=== PATIENT | female | born 1940 | race Two or more races ===

== ENCOUNTER 2018-10-26 22:30 | Inpatient (IN) | payer OTHER, MEDICARE ==
[~2018-10-26] VITALS: Ht 157.5 cm; Wt 59.9 kg
[2018-10-27 01:09] VITALS: BP 130/70
[2018-10-27] MEDS ORDERED: MAG HYDROX/AL HYDROX/SIMETH 30 ML UDC PO PRN (01:30)
[2018-10-27] MEDS ORDERED: HYDROCODONE/APAP 10/325MG 1 EA TABLET PO PRN (01:30)
[2018-10-27] MEDS ORDERED: ONDANSETRON HCL/PF 4 MG/2 ML VIAL IVP PRN (01:30)
[2018-10-27] MEDS ORDERED: HYDROCODONE/APAP 5/325MG 1 EACH TABLET PO PRN (01:30)
[2018-10-27] MEDS ORDERED: TEMAZEPAM 15 MG CAPSULE PO PRN (01:30)
[2018-10-27] MEDS ORDERED: ACETAMINOPHEN 325 MG TABLET PO PRN (01:30)
[2018-10-27] MEDS ORDERED: MAGNESIUM HYDROXIDE 30 ML UDC PO PRN (01:30)
[2018-10-27] MEDS ORDERED: ATOR20TA PO (01:35)
[2018-10-27] MEDS ORDERED: METO50TA16 PO (01:35)
[2018-10-27] MEDS ORDERED: ALEN70TA6 PO (01:35)
[2018-10-27] MEDS ORDERED: BENA40TA8 PO (01:35)
[2018-10-27] MEDS ORDERED: CALC-883 PO (01:35)
--- NOTE | 2018-10-27 02:30 | NUR ---
MS ADMITTING NOTES RECEIVE PT FROM HIRAL SANCHEZ [facility] VIA NOA Albright EMT AT 0109 A/O X 3 WITH PERIOD OF FORGETFULNESS ADMIT TO MS UNIT ON 2LPM VIA NC 02 SAT AT 98%. DENIES PAIN. NO NAUSEA AND VOMITING. DAUGHTER AT BEDSIDE. HEAD TO ASSESSMENT IS DONE, KEPT CLEAN AND DRY, COMFORTABLE. NEEDS ATTENDED AND ANTICIPATED. SAFETY MEASURES AT ALL TIMES. WILL CONTINUE TO MONITOR.
--- NOTE | 2018-10-27 06:12 | NUR ---
MS RN PT SLEPT WELL THROUGHOUT THE NIGHT. DAUGHTER AT BEDSIDE. NOT IN RESPIRATORY DISTRESS. NO SIGNIFICANT CHANGES, STABLE. KEPT CLEAN AND DRY AND COMFORTABLE. NEEDS ATTENDED AND ANTICIPATED. NURSING CARE RENDERED, SAFETY MEASURES AT ALL TIMES. ENDORSE TO THE NEXT SHIFT.
--- NOTE | 2018-10-27 07:35 | NUR ---
RN NOTE: RECEIVED PATIENT IN BED, AWAKE, ALERT AND VERBALLY RESPONSIVE. DAUGHTER AT THE BEDSIDE. RESPIRATION EVEN AND UNLABORED WITH O2 3L/MIN VIA NC SATURATING 99%. PATIENT WAS MACEDONIAN SPEAKING MOSTLY. RESPIRATION EVEN AND UNLABORED SATURATING 99% IN ROOM AIR. DENIED ANY PAIN. BREAKFAST TRAY WAS OFFERED TO THE PATIENT. (L) HAND IV SITE WAS INTACT AND PATENT. BED ALARMED AND LOCKED AT ALL TIMES. CALL LIGHT WITHIN REACH. NEEDS ANTICIPATED.
[2018-10-27 07:47] LABS: THYROID STIMULATING HORMONE 4.688 uIU/mL (0.358-3.74)
[2018-10-27 08:00] VITALS: BP 120/67
[2018-10-27] MEDS: CEFTRIAXONE 1 G in IV D5W 50 ML IV SCH (08:27)
[2018-10-27] MEDS: CALCIUM CARB 600MG /VIT D 1 EACH TABLET PO SCH (08:42)
[2018-10-27] MEDS: BENAZEPRIL HCL 20 MG TABLET PO SCH (09:00)
[2018-10-27] MEDS: METOPROLOL TARTRATE 50 MG TABLET PO SCH (12:21)
[2018-10-27 12:29] LABS: CALCIUM, SERUM 9.4 mg/dL (8.5-10.1); CARBON DIOXIDE 27 mmol/L (21-32); CHLORIDE 100 mmol/L (98-107); GLUCOSE 119 mg/dL (74-106); SODIUM SERUM 136 mmol/L (136-145); UREA NITROGEN, BLOOD 18 mg/dL (7-18)
[2018-10-27 13:29] LABS: MAGNESIUM 2.2 mg/dL (1.8-2.4); PHOSPHORUS 3.9 mg/dL (2.5-4.9)
[2018-10-27 16:00] VITALS: BP 126/70
--- NOTE | 2018-10-27 19:25 | NUR ---
RN OPEN NOTES RECEIVED PATIENT AWAKE IN BED WITH FAMILY AT BEDSIDE. A/OX4. NO SIGNS OF DISTRESS OR DISCOMFORT. BREATHING EVEN AND UNLABORED. IV ACCESS IN L HAND, PATENT AND INTACT, NO SIGNS OF REDNESS OR INFILTRATION. BED IN LOW LOCKED POSITION WITH SIDE RAILS X2. CALL LIGHT WITHIN REACH. WILL CONTINUE TO MONITOR. Addendum: 10/27/18 at 2007 by PAMELA RAIN RN PT ON 2LPM O2 VIA NC.
--- NOTE | 2018-10-27 19:26 | NUR ---
RN NOTE: BEDSIDE REPORT WAS GIVEN TO PM SHIFT NURSE FOR CONTINUITY OF CARE. PATIENT REMAINED ON STABLE CONDITION. NO EPISODES OF SHORTNESS OF BREATH. AND DENIED ANY PAIN.
[2018-10-27 19:57] VITALS: BP 126/71
[2018-10-27 20:00] VITALS: BP 126/71
[2018-10-27] MEDS: ATORVASTATIN 10 MG TABLET PO SCH (21:31)
[2018-10-28 04:00] VITALS: BP 106/66
--- NOTE | 2018-10-28 06:46 | NUR ---
RN CLOSING NOTES PATIENT RESTING IN BED, EASILY AROUSABLE. A/OX4. NO SIGNS OF DISTRESS OR DISCOMFORT. BREATHING EVEN AND UNLABORED. ON 2LPM O2 VIA NC. IV ACCESS IN L HAND, PATENT AND INTACT, NO SIGNS OF REDNESS OR INFILTRATION. ALL NEEDS MET. NO SIGNIFICANT CHANGES THROUGH THE NIGHT. BED IN LOW LOCKED POSITION WITH SIDE RAILS X2. CALL LIGHT WITHIN REACH. WILL ENDORSE TO AM SHIFT FOR REUBEN.
--- NOTE | 2018-10-28 07:20 | NUR ---
MS RN OPENING NOTES Report received at bedside. patient received in bed, sleeping comfortably, easily aroused, On continuous oxygen therapy @2LPM via nasal cannula with no SOB/labored breathing noted. Not in any type of distress. No facial grimacing or moaning noted. Safety measures in place. Will continue to monitor and assess patient.
[2018-10-28 07:37] LABS: CALCIUM, SERUM 9.2 mg/dL (8.5-10.1); CARBON DIOXIDE 26 mmol/L (21-32); CHLORIDE 102 mmol/L (98-107); CREATININE 0.8 mg/dL (0.6-1.3); GLUCOSE 105 mg/dL (74-106); MAGNESIUM 2.2 mg/dL (1.8-2.4); PHOSPHORUS 3.4 mg/dL (2.5-4.9); POTASSIUM 4.2 mmol/L (3.5-5.1); SODIUM SERUM 137 mmol/L (136-145); UREA NITROGEN, BLOOD 18 mg/dL (7-18)
[2018-10-28 08:00] VITALS: BP 114/72
[2018-10-28 08:05] LABS: BASOPHILS % (AUTO) 0.3 % (0.0-2.0); EOSINOPHILS % (AUTO) 1.5 % (0.0-6.0); HEMATOCRIT 40 % (33-45); HEMOGLOBIN 13.5 g/dL (11.5-14.8); LYMPHOCYTES # (AUTO) 1.6 /CMM (0.8-4.8); LYMPHOCYTES % (AUTO) 24.1 % (20.0-44.0); MEAN CORPUSCULAR HGB CONC 34 g/dl (31.0-36.0); MEAN CORPUSCULAR VOLUME 83 fL (82-100); MONOCYTES # (AUTO) 0.6 /CMM (0.1-1.30); MONOCYTES % (AUTO) 9.5 % (2.0-12.0); NEUTROPHILS # (AUTO) 4.3 /CMM (1.8-8.9); NEUTROPHILS % (AUTO) 64.6 % (43.0-81.0); PLATELET COUNT (AUTO) 218 /CMM (150-450); RED BLOOD CELL COUNT(AUTO) 4.82 MIL/uL (4.0-5.2); WHITE BLOOD COUNT (AUTO) 6.7 K/uL (4.3-11.0)
[2018-10-28] MEDS: BENAZEPRIL HCL 20 MG TABLET PO SCH (08:22)
[2018-10-28] MEDS: METOPROLOL TARTRATE 50 MG TABLET PO SCH (08:22)
[2018-10-28] MEDS: CALCIUM CARB 600MG /VIT D 1 EACH TABLET PO SCH (08:22)
[2018-10-28] MEDS: CEFTRIAXONE 1 G in IV D5W 50 ML IV SCH (09:13)
--- NOTE | 2018-10-28 09:17 | NUR ---
WOUND CARE CONSULT: PT PRESENTS WITH SOME SACRAL PIGMENT IRREGULARITIES AND INTACT SKIN. PT IS CONTINENT AND AMBULATORY. WILL SEE PRN. CURRENT BRYAN SCORE IS 19.
--- NOTE | 2018-10-28 13:55 | NUR ---
MS RN NOTES CC at bedside. Per CC, collect urine sample, continue hospitalization and continue IV antibiotic treatment.
[2018-10-28 16:00] VITALS: BP 98/54
--- NOTE | 2018-10-28 18:45 | NUR ---
MS RN CLOSING NOTES Patient remained in bed, intermittently sleeping. Alert and oriented x3, verbally responsive in Occitan only. Family at bedside. Denies any pain/discomfort. Remains on continuous oxygen therapy @2LPM via nasal cannula with no labored breathing noted. Not in any type of distress. Low grade fever - provider aware with orders of urine culture, continue hospitalization with IV antibiotic treatment. All anticipated needs provided and met. Kept patient clean, dry and comfortable. Safety measures in place. Bed in lowest position with bed alarm on and call light within reach. Will continue to monitor and assess patient and endorse to oncoming shift nurse.
[2018-10-28 19:11] LABS: APPEARANCE,URINE SL CLOUDY (CLEAR); BILIRUBIN,URINE 1+ (NEGATIVE); BLOOD, URINE TRACE Ery/uL (NEGATIVE); COLOR,URINE YELLOW (YELLOW); KETONES,URINE TRACE (NEGATIVE); LEUKOCYTE ESTERASE ,URINE 1+ (NEGATIVE); NITRITE, URINE NEGATIVE (NEGATIVE); PH,URINE 5.5 (5.0-8.0); PROTEIN,URINE TRACE mg/dl (NEGATIVE); UGLUCOSE NEGATIVE (NEGATIVE); UROBILINOGEN,URINE 0.2 EU/dL (0.2)
--- NOTE | 2018-10-28 19:45 | NUR ---
MS RN NOTES RECEIVED PATIENT AWAKE, NO SIGNS OF ACUTE RESPIRATORY DISTRESS, ON O2 AT 2LPM VIA NC, BREATHING EVEN AND NON LABORED SATING 100%, IV ACCESS ON HER LEFT HAND G#22 INTACT AND PATENT, ALL SAFETY MEASURES IN PLACE ASPIRATION PRECAUTION EMPHASIZE, FAMILY MEMBERS AT BEDSIDE AT THIS TIME. ALL NEEDS ATTENDED, WILL CONTINUE TO MONITOR ACCORDINGLY.
[2018-10-28 20:00] VITALS: BP 128/68
[2018-10-28 20:06] LABS: RBC,URINE 0-2 /HPF (0-2); SQUAMOUS EPITHELIAL CELL,UR Few /HPF (None Seen)
[2018-10-28 20:07] LABS: BACTERIA,URINE Rare /HPF (None Seen)
[2018-10-28] MEDS: ATORVASTATIN 10 MG TABLET PO SCH (22:00)
[2018-10-29] VITALS: BP 128/68
[2018-10-29 04:00] VITALS: BP 129/74
--- NOTE | 2018-10-29 06:50 | NUR ---
RN NOTES ALL NEEDS ATTENDED AND MET, ABLE TO REST AND SLEEP WITH LONG INTERVALS, USES BEDSIDE COMMODE, SAFETY MEASURES IN PLACE, CALL LIGHT WITHIN EASY REACH, WILL ENDORSE TO AM NURSE FOR CONTINUITY OF CARE.
[2018-10-29 07:24] LABS: CALCIUM, SERUM 9.7 mg/dL (8.5-10.1); CARBON DIOXIDE 26 mmol/L (21-32); CHLORIDE 103 mmol/L (98-107); GLUCOSE 113 mg/dL (74-106); MAGNESIUM 2.2 mg/dL (1.8-2.4); PHOSPHORUS 4.1 mg/dL (2.5-4.9); SODIUM SERUM 138 mmol/L (136-145); UREA NITROGEN, BLOOD 26 mg/dL (7-18)
--- NOTE | 2018-10-29 07:30 | NUR ---
MS RN OPENING NOTES RECEIVED PT IN BED. ASLEEP, EASILY AROUSED, A/O X3. PT ON SUPPLEMENTARY OXYGEN AT 2L VIA NC, WITH NO ACUTE RESPIRATORY DISTRESS. PT DENIES ANY PAIN OR DISCOMFORT AT THIS TIME. PT DENIES ANY QUESTIONS OR ANY CONCERNS AT THIS MOMENT. PIV TO LEFT HAND G22 SL, FLUSHED WITH NS, INTACT AND OPERATIONAL. PT KEPT COMFORTABLE. PT'S BED IN LOWEST, LOCKED POSITION WITH SR X2. CALL LIGHT KEPT WITHIN REACH. WILL CONTINUE PLAN OF CARE.
[2018-10-29 07:49] LABS: BASOPHILS % (AUTO) 0.3 % (0.0-2.0); EOSINOPHILS % (AUTO) 1.4 % (0.0-6.0); HEMATOCRIT 41 % (33-45); HEMOGLOBIN 13.7 g/dL (11.5-14.8); LYMPHOCYTES % (AUTO) 24.6 % (20.0-44.0); MEAN CORPUSCULAR HGB CONC 34 g/dl (31.0-36.0); MEAN CORPUSCULAR VOLUME 83 fL (82-100); MONOCYTES # (AUTO) 0.7 /CMM (0.1-1.30); MONOCYTES % (AUTO) 8.7 % (2.0-12.0); NEUTROPHILS # (AUTO) 5.2 /CMM (1.8-8.9); PLATELET COUNT (AUTO) 216 /CMM (150-450); RED BLOOD CELL COUNT(AUTO) 4.91 MIL/uL (4.0-5.2); WHITE BLOOD COUNT (AUTO) 8.1 K/uL (4.3-11.0)
[2018-10-29 08:00] VITALS: BP 134/70
[2018-10-29] MEDS: CALCIUM CARB 600MG /VIT D 1 EACH TABLET PO SCH (08:32)
[2018-10-29] MEDS: CEFTRIAXONE 1 G in IV D5W 50 ML IV SCH (08:32)
[2018-10-29] MEDS: METOPROLOL TARTRATE 50 MG TABLET PO SCH (08:33)
[2018-10-29] MEDS: BENAZEPRIL HCL 20 MG TABLET PO SCH (08:33)
[2018-10-29] MEDS ORDERED: LEVO500T75 PO (13:30)
[2018-10-29 14:10] LABS: ABG OXYGEN SATURATION 95.4 % (92.0-98.5); ABG PCO2 38.4 mmHg (35.0-45.0); ABG PH 7.404 (7.350-7.450); ABG PO2 79.7 mmHg (75.0-100.0); COHb 0.4 % (0.5-1.5); MetHb 0.4 % (0.0-1.5); O2Hb 94.6 % (94.0-97.0); SITE, ABG Right Brachial; VENT MODE, BG Room Air
[2018-10-29 16:00] VITALS: BP 106/71
[2018-10-29] MEDS: IPRATROPIUM NEB FS 0.5 MG/2.5 ML AMPUL.NEB NEB SCH ×3 (16:00→23:19)
[2018-10-29] MEDS: ALBUTEROL FS 2.5 MG/0.5 ML VIAL.NEB NEB SCH ×3 (16:00→23:19)
[2018-10-29] MEDS: methylPREDNISolone SOD SUCC 125 MG/2ML VIAL IV SCH ×2 (17:39→23:29)
--- NOTE | 2018-10-29 18:51 | NUR ---
MS RN CLOSING NOTES PT SITTING AT BEDSIDE. AWAKE, A/O X3-4. GEORGIAN SPEAKING. 1 FAMILY MEMBER PRESENT AT BEDSIDE. PT ON SUPPLEMENTARY OXYGEN AT 2L VIA NC, WITH NO ACUTE RESPIRATORY DISTRESS. PT DENIES ANY PAIN OR DISCOMFORT AT THIS TIME. PIV TO LEFT HAND G22 SL, FLUSHED WITH NS, INTACT AND OPERATIONAL. PT KEPT COMFORTABLE. ALL NEEDS AND CARE ATTENDED. PT'S BED IN LOWEST, LOCKED POSITION WITH SR X2. CALL LIGHT KEPT WITHIN REACH. WILL ENDORSE TO INCOMING NIGHT NURSE FOR REUBEN.
--- NOTE | 2018-10-29 19:00 | NUR ---
MS RN NOTE RECEIVED PT IN STABLE CONDITION A&O X3, FAMILY AT BEDSIDE. NO SIGNS OF SOB OR DISTRESS, NO C/O PAIN. IV IN L HAND IN PLACE. ALL CURRENT NEEDS ATTENDED TO. BED LOW, LOCKED, UPPER RAILS UP, AND CALL LIGHT WITHIN REACH. WILL CONT. TO MONITOR.
[2018-10-29 20:00] VITALS: BP 125/69
[2018-10-29 20:23] VITALS: BP 125/69
[2018-10-29] MEDS: ATORVASTATIN 10 MG TABLET PO SCH (21:04)
[2018-10-30] MEDS: IPRATROPIUM NEB FS 0.5 MG/2.5 ML AMPUL.NEB NEB SCH ×3 (03:29→11:48)
[2018-10-30] MEDS: ALBUTEROL FS 2.5 MG/0.5 ML VIAL.NEB NEB SCH ×3 (03:29→11:48)
[2018-10-30 04:00] VITALS: BP 124/63
--- NOTE | 2018-10-30 06:14 | NUR ---
MS RN NOTE PT IN STABLE CONDITION A&O X3, CURRENTLY RESTING IN BED. NO SIGNS OF SOB OR DISTRESS, NO C/O PAIN. IV IN L HAND IN PLACE. ALL CURRENT NEEDS ATTENDED TO. BED LOW, LOCKED, UPPER RAILS UP, AND CALL LIGHT WITHIN REACH. WILL CONT. TO MONITOR AND ENDORSE TO NEXT SHIFT FOR REUBEN.
--- NOTE | 2018-10-30 07:30 | NUR ---
RN MS NOTES PT IN BED, AWAKE, ALERT AND ORIENTED, NO COMPLAINT OF PAIN, RESPIRATIONS NORMAL, CALL LIGHT WITHIN REACH, STATED THAT SHE IS FEELING BETTER, KEPT COMFORTABLE IN BED.
[2018-10-30 08:00] VITALS: BP 121/71
[2018-10-30] MEDS: CEFTRIAXONE 1 G in IV D5W 50 ML IV SCH (08:21)
[2018-10-30] MEDS: CALCIUM CARB 600MG /VIT D 1 EACH TABLET PO SCH (08:21)
[2018-10-30] MEDS: methylPREDNISolone SOD SUCC 125 MG/2ML VIAL IV SCH (08:21)
[2018-10-30] MEDS: METOPROLOL TARTRATE 50 MG TABLET PO SCH (08:22)
[2018-10-30] MEDS: BENAZEPRIL HCL 20 MG TABLET PO SCH (08:22)
[2018-10-30] MEDS ORDERED: PRED20TA PO (11:00)
[2018-10-30] MEDS ORDERED: PRED5TAB48 PO (11:00)
[2018-10-30] MEDS ORDERED: PRED2.5T PO (11:00)
[2018-10-30] MEDS ORDERED: IPRATROPIUM NEB FS 0.5 MG/2.5 ML AMPUL.NEB NEB PRN (12:00)
[2018-10-30] MEDS ORDERED: ALBUTEROL FS 2.5 MG/0.5 ML VIAL.NEB NEB PRN (12:00)
[2018-10-30] MEDS: methylPREDNISolone SOD SUCC 40 MG/ML VIAL IV SCH ×2 (12:29→21:36)
[2018-10-30] MEDS: ASPIRIN 81 MG TAB.CHEW PO SCH (12:29)
--- NOTE | 2018-10-30 12:45 | NUR ---
RN MS NOTES PT IN BED, AWAKE, ALERT AND ORIENTED, DENIES PAIN, NOT IN DISTRESS, SEEN BY [employer] ATTENDANT, PLAN OF CARE DISCUSSED WITH PT, VERBALIZED UNDERSTANDING, CALL LIGHT WITHIN REACH.
--- NOTE | 2018-10-30 18:20 | NUR ---
RN MS NOTES PT AWAKE, SITTING IN THE CHAIR, NO COMPLAINT OF PAIN OR ANY DISCOMFORT, RESPIRATIONS NORMAL, CALL LIGHT PLACED WITHIN REACH, NEEDS ATTENDED.
--- NOTE | 2018-10-30 19:35 | NUR ---
RN OPENING NOTES RECEIVED [facility] JAY[facility] JUAN. FOUND Pt AWAKE, RESTING IN BED. NO S/S OF ACUTE DISTRESS OR SOB NOTED. Pt IS A/OX3, URDU SPEAKING ONLY, VERBAL, ABLE TO MAKE NEEDS KNOWN. Pt IS AMB WITH STANDBY ASSIST AND WALKER. ON CARDIAC DIET. IV ACCESS ON L HAND #22G, SL. PER REPORT POSSIBLE DC HOME TOMORROW IN THE AM. SAFETY MEASURES IN PLACE. BED LOW, LOCKED, HOB ELEVATED, SIDE RAILS UP, CALL LIGHT AND BEDSIDE TABLE WITHIN REACH. BED ALARM ON. WILL CONTINUE OT MONITOR Pt's CONDITION AND SAFETY THROUGHOUT THE NIGHT.
[2018-10-30 20:00] VITALS: BP 129/64
[2018-10-30] MEDS: ATORVASTATIN 10 MG TABLET PO SCH (21:36)
[2018-10-31 04:00] VITALS: BP 130/67
[2018-10-31] MEDS: methylPREDNISolone SOD SUCC 40 MG/ML VIAL IV SCH ×2 (05:01→13:16)
--- NOTE | 2018-10-31 06:24 | NUR ---
RN CLOSING NOTES NO SIGNIFICANT CHANGES IN Pt's CONDITION. Pt IS RESTING IN BED. RESPIRATIONS EVEN AND UNLABORED. NO S/S OF ACUTE DISTRESS OR SEVERE SOB NOTED DURING THE NIGHT. ALL NEEDS MET AND ATTENDED TO. SAFETY MEASURES IN PLACE. WILL ENDORSE TO DAYSHIFT RN FOR Pt's REUBEN.
[2018-10-31] MEDS ORDERED: ALENDRONATE 70 MG TABLET PO SCH (07:30)
--- NOTE | 2018-10-31 07:30 | NUR ---
RN AM NOTE PATIENT ALERT ORIENTED AND IN GOOD SPIRITS. PARTICIPATING IN CARE. VITALS STABLE NO COMPLAINTS OF PAIN OR DISCOMFORT. FAMILY AT BEDSIDE. PATIENT MAY BE GOING HOME TODAY, AWAITING MD ORDERS. BED IN LOW POSITION, CALL LIGHT WITHIN REACH. ALL NEEDS MED AT THIS TIME.
[2018-10-31 08:00] VITALS: BP 117/59
[2018-10-31] MEDS: METOPROLOL TARTRATE 50 MG TABLET PO SCH (08:35)
[2018-10-31] MEDS: BENAZEPRIL HCL 20 MG TABLET PO SCH (08:35)
[2018-10-31] MEDS: CALCIUM CARB 600MG /VIT D 1 EACH TABLET PO SCH (08:36)
[2018-10-31] MEDS: ASPIRIN 81 MG TAB.CHEW PO SCH (08:36)
[2018-10-31 12:00] VITALS: BP 128/70
--- NOTE | 2018-10-31 14:50 | NUR ---
RN NOTE PATIENT OK FOR DISCHARGE BY MD. FAMILY AWARE, ALL PAPERWORK SIGNED AND GIVEN TO PATIETN. TRANSFTER TO HOME, FAMILY WILL RECREATION THERAPIST PATIENT TODAY AND ASSIST WITH CARE AT HOME. REFUSAL OF VACCINATIONS AND ALL PAPERWORK SIGNED. AWAITING PICKUP.
--- NOTE | 2018-10-31 15:21 | NUR ---
RN NOTE PATIENT DISCHRAGED WALKED OUT IN WHEELCHAIR WITH FAMILY AT SIDE [employer] IN PARKING LOT WITH RN. VITALS STABLE, NO COMPLAITNS OF PAIN. ALL INIFORMATION PROVIDED TO FAMILY. NO WOUNDS PRESENT ON ADMISSION OR IN CHART FOR FOLLOW UP.
== END 2018-10-31 15:21 | disposition home or self-care (01) | DRG 133 ==
LOC: MEDSG1 10-27 00:59
PROVIDERS: ADMIT Nurse Practitioner Acute Care; ATTEND Nurse Practitioner Acute Care
DX: J96.01 Acute respiratory failure with hypoxia (principal); J15.9 Unspecified bacterial pneumonia; E86.0 Dehydration; J44.0 Chronic obstructive pulmonary disease with (acute) lower respiratory infection; E87.1 Hypo-osmolality and hyponatremia; J84.10 Pulmonary fibrosis, unspecified; E86.1 Hypovolemia; E55.9 Vitamin D deficiency, unspecified; E78.00 Pure hypercholesterolemia, unspecified; I10 Essential (primary) hypertension; J44.1 Chronic obstructive pulmonary disease with (acute) exacerbation; E78.5 Hyperlipidemia, unspecified
CPT/HCPCS: 36415; 36600; 71045-TC; 71250-TC; 80048-TC; 80061-TC; 81000-TC; 82803-TC; 83735-TC; 84100-TC; 84443-TC; 85025-TC; 87081-TC; 87086-TC; 93307-TC; 94799-TC; 97116-TC; 97530-TC; G0378; J0696; J2920; J2930; J3490; J7030; J7060

== ENCOUNTER 2018-11-04 22:27 | Inpatient (IN) | payer OTHER, MEDICARE ==
[~2018-11-04] VITALS: Ht 157.5 cm; Wt 62.8 kg
[~2018-11-04 22:27] MED LIST: ALEN70TA6 PO; ATOR20TA PO; BENA40TA8 PO; CALC-883 PO; LEVO500T75 PO; METO50TA16 PO; PRED2.5T PO; PRED20TA PO; PRED5TAB48 PO
--- NOTE | 2018-11-04 22:40 | NUR ---
MS RN ADMITTING NOTES RECEIVED PT FROM DOUGLAS DANIEL VIA AMBULANCE AND NOA IN STABLE CONDITION WITH FAMILY AT BEDSIDE. PT A/O X1 AND AZERI SPEAKING. RESPIRATIONS EVEN AND UNLABORED WITH NO S/S OF ACUTE DISTRESS OR SOB NOTED. NO COMPLAINTS OF PAIN AT THIS TIME. PT WITH LAC #20G PATENT AND INTACT. ORIENTED PT TO UNIT AND FLOOR WELL FAMILY. SAFETY MEASURES IN PLACE WITH BED IN LOWEST LOCKED POSITION WITH SIDE RAILS UP X2. CALL LIGHT WITHIN REACH. WILL CONTINUE TO MONITOR.
[2018-11-04] MEDS ORDERED: ONDANSETRON HCL/PF 4 MG/2 ML VIAL IVP PRN (23:00)
[2018-11-04] MEDS ORDERED: ACETAMINOPHEN 325 MG TABLET PO PRN (23:00)
[2018-11-04] MEDS ORDERED: Z GUARD REMEDY 2 OZ OINT TP PRN (23:00)
[2018-11-04] MEDS ORDERED: MAGNESIUM HYDROXIDE 30 ML UDC PO PRN (23:00)
[2018-11-04] MEDS ORDERED: ZOLPIDEM TARTRATE 5 MG TABLET PO PRN (23:00)
[2018-11-04] MEDS ORDERED: MAG HYDROX/AL HYDROX/SIMETH 30 ML UDC PO PRN (23:00)
[2018-11-04] MEDS ORDERED: CEFTRIAXONE 1 G in IV D5W 50 ML IV SCH (23:00)
[2018-11-04] MEDS ORDERED: AZITHROMYCIN 500 MG in IV D5W 250 ML IV SCH (23:00)
[2018-11-05] MEDS: IV NS 0.9% 1,000 ML IV PRN ×2 (00:15→17:44)
[2018-11-05 01:36] VITALS: BP 147/66
[2018-11-05] MEDS: HYDROCODONE/APAP 5/325MG 1 EACH TABLET PO PRN ×2 (03:50→18:51)
[2018-11-05 06:29] LABS: BASOPHILS % (AUTO) 0.1 % (0.0-2.0); EOSINOPHILS % (AUTO) 1.1 % (0.0-6.0); HEMATOCRIT 39 % (33-45); HEMOGLOBIN 12.8 g/dL (11.5-14.8); LYMPHOCYTES % (AUTO) 24.4 % (20.0-44.0); MEAN CORPUSCULAR HGB CONC 33 g/dl (31.0-36.0); MEAN CORPUSCULAR VOLUME 83 fL (82-100); MONOCYTES # (AUTO) 0.6 /CMM (0.1-1.30); MONOCYTES % (AUTO) 7.6 % (2.0-12.0); NEUTROPHILS # (AUTO) 5.6 /CMM (1.8-8.9); NEUTROPHILS % (AUTO) 66.8 % (43.0-81.0); PLATELET COUNT (AUTO) 246 /CMM (150-450); RED BLOOD CELL COUNT(AUTO) 4.64 MIL/uL (4.0-5.2); WHITE BLOOD COUNT (AUTO) 8.4 K/uL (4.3-11.0)
[2018-11-05 06:40] LABS: CHOLESTEROL 126 mg/dL (<200); HDL CHOLESTEROL 39 mg/dL (40-60); LDL 77 mg/dL (0-99); THYROID STIMULATING HORMONE 2.265 uIU/mL (0.358-3.74); TRIGLYCERIDES 112 mg/dL (30-150)
[2018-11-05 07:36] LABS: CALCIUM, SERUM 8.1 mg/dL (8.5-10.1); CARBON DIOXIDE 25 mmol/L (21-32); CHLORIDE 103 mmol/L (98-107); CREATININE 0.7 mg/dL (0.6-1.3); GLUCOSE 107 mg/dL (74-106); MAGNESIUM 2.2 mg/dL (1.8-2.4); PHOSPHORUS 2.5 mg/dL (2.5-4.9); POTASSIUM 3.9 mmol/L (3.5-5.1); SODIUM SERUM 136 mmol/L (136-145); UREA NITROGEN, BLOOD 18 mg/dL (7-18)
--- NOTE | 2018-11-05 07:40 | NUR ---
MS RN OPENING NOTES RECEIVED PT IN BED RESTING COMFORTABLY WITH FAMILY AT BEDSIDE. A/O X1 AND ITALIAN SPEAKING AND ABLE TO MAKE NEEDS KNOWN. RESPIRATIONS EVEN AND UNLABORED. NO S/S OF ACUTE DISTRESS OR SOB AT THIS TIME. PT WITH LAC #20G PATENT AND INTACT RUNNING NS @75ML/HR. SAFETY MEASURES KEPT IN PLACE WITH BED IN LOW LOCKED POSITION WITH SIDE RAILS UP X2. CALL LIGHT WITHIN REACH. WILL CONTINUE TO MONITOR.
--- NOTE | 2018-11-05 07:40 | NUR ---
MS RN ADMITTING NOTES PT IN BED AWAKE WITH FAMILY AT BEDSIDE. PT A/O X1 AND TEL[place] SPEAKING AND ABLE TO MAKE NEEDS KNOWN. RESPIRATIONS EVEN AND UNLABORED WITH NO S/S OF ACUTE DISTRESS OR SOB NOTED THROUGHOUT SHIFT. NO COMPLAINTS OF PAIN AT THIS TIME. PT WITH LAC #20G PATENT AND INTACT RUNNING NS @75ML/HR. PT KEPT CLEAN, DRY, AND COMFORTABLE. SAFETY MEASURES IN PLACE WITH BED IN LOWEST LOCKED POSITION WITH SIDE RAILS UP X2. CALL LIGHT WITHIN REACH. WILL ENDORSE TO ONCOMING NURSE FOR REUBEN. Addendum: 11/05/18 at 0741 by ZAYRA ABREU RN RN CLOSING NOTES
[2018-11-05 08:00] VITALS: BP 154/72
[2018-11-05 09:39] LABS: APPEARANCE,URINE CLEAR (CLEAR); BILIRUBIN,URINE NEGATIVE (NEGATIVE); BLOOD, URINE NEGATIVE Ery/uL (NEGATIVE); COLOR,URINE YELLOW (YELLOW); KETONES,URINE NEGATIVE (NEGATIVE); LEUKOCYTE ESTERASE ,URINE NEGATIVE (NEGATIVE); NITRITE, URINE NEGATIVE (NEGATIVE); PH,URINE 6.5 (5.0-8.0); PROTEIN,URINE NEGATIVE (NEGATIVE); UGLUCOSE NEGATIVE (NEGATIVE); UROBILINOGEN,URINE 0.2 EU/dL (0.2)
[2018-11-05] MEDS: LIDOCAINE 5% (PATCH) 1 EA PATCH TP SCH (12:38)
[2018-11-05] MEDS: CEFTRIAXONE 1 G in IV D5W 50 ML IV SCH (13:31)
[2018-11-05] MEDS: AZITHROMYCIN 500 MG in IV D5W 250 ML IV SCH (14:10)
[2018-11-05 16:00] VITALS: BP 153/77
[2018-11-05 17:14] VITALS: BP_SYST 129; BP_SYST 131; BP_SYST 133; BP_DIAS 53; BP_DIAS 76; BP_DIAS 77
--- NOTE | 2018-11-05 19:00 | NUR ---
MS RN CLOSING NOTES PATIENT IN BED RESTING COMFORTABLY WITH FAMILY AT BEDSIDE. A/O X1 AND SALVADOREAN SPEAKING. ON RA, TOLERATING WELL. IV FLUIDS ON LEFT FA #22 WITH NS @ 75ML/HR. PATENT AND INTACT. SAFETY MEASURES IN PLACE WITH BED IN LOW LOCKED POSITION WITH SIDE RAILS UP X2. CALL LIGHT WITHIN REACH. WILL ENDORSED TO PLUMBER ASSISTANT NURSE FOR REUBEN.
--- NOTE | 2018-11-05 19:15 | NUR ---
MS RN OPENING NOTES Patient asleep, easily awaken on bed, on RA, no SOB/respiratory distress noted at this time. No s/sx of discomfort noted at this time. Kept on bed clean, dry and comfortable. Call light within easy reach. On fall precautions. Will continue to monitor accordingly.
[2018-11-05 20:00] VITALS: BP 142/84
[2018-11-05 20:52] VITALS: BP 142/82
[2018-11-06] MEDS: HYDROCODONE/APAP 5/325MG 1 EACH TABLET PO PRN ×2 (03:42→10:24)
[2018-11-06 06:46] LABS: BASOPHILS % (AUTO) 0.1 % (0.0-2.0); EOSINOPHILS % (AUTO) 2.2 % (0.0-6.0); HEMATOCRIT 39 % (33-45); HEMOGLOBIN 12.7 g/dL (11.5-14.8); LYMPHOCYTES # (AUTO) 2.3 /CMM (0.8-4.8); MEAN CORPUSCULAR HGB CONC 33 g/dl (31.0-36.0); MEAN CORPUSCULAR VOLUME 83 fL (82-100); MONOCYTES # (AUTO) 0.6 /CMM (0.1-1.30); MONOCYTES % (AUTO) 7.5 % (2.0-12.0); NEUTROPHILS # (AUTO) 5.3 /CMM (1.8-8.9); NEUTROPHILS % (AUTO) 63.2 % (43.0-81.0); PLATELET COUNT (AUTO) 242 /CMM (150-450); RED BLOOD CELL COUNT(AUTO) 4.64 MIL/uL (4.0-5.2); WHITE BLOOD COUNT (AUTO) 8.4 K/uL (4.3-11.0)
[2018-11-06 06:53] LABS: CALCIUM, SERUM 7.6 mg/dL (8.5-10.1); CARBON DIOXIDE 25 mmol/L (21-32); CHLORIDE 104 mmol/L (98-107); CREATININE 0.6 mg/dL (0.6-1.3); GLUCOSE 106 mg/dL (74-106); POTASSIUM 3.6 mmol/L (3.5-5.1); SODIUM SERUM 138 mmol/L (136-145); UREA NITROGEN, BLOOD 8 mg/dL (7-18)
--- NOTE | 2018-11-06 06:55 | NUR ---
MS RN CLOSING NOTES Patient asleep, easily awaken. No new complaints made. Afebrile the whole shift. On RA, no SOB/respiratory distress noted. Medicated for pain, noted effective. All nursing needs attended. Kept on bed clean, dry and comfortable. Call light within easy reach. Endorsed to the next shift.
[2018-11-06] MEDS: IV NS 0.9% 1,000 ML IV PRN ×2 (07:10→21:52)
[2018-11-06 08:00] VITALS: BP 157/83
--- NOTE | 2018-11-06 08:05 | NUR ---
MS RN RECEIVED ON BED, AWAKE, ALERT,ORIENTED X2,NOT IN ANY FORM OF DISTRESS, RESPIRATIONS EVEN AND UNLABORED,NO SOB NOTED, LUNGS ARE CLEAR,ABDOMEN SOFT,POSITIVE BOWEL SOUNDS,DENIES PAIN AT THIS TIME,ALL NEEDS ATTENDED.
--- NOTE | 2018-11-06 09:20 | NUR ---
MS [place] BREAKFAST SERVED,DUE MEDS GIVEN,TOLERATED WELL.
--- NOTE | 2018-11-06 12:00 | NUR ---
MS RN WAS SEEN BY [employer] [facility]/ ORDERS MADE AND CARRIED OUT
[2018-11-06] MEDS: CEFTRIAXONE 1 G in IV D5W 50 ML IV SCH (15:19)
[2018-11-06 16:00] VITALS: BP 144/62
--- NOTE | 2018-11-06 16:00 | NUR ---
MS RN CALLED EXCHANGE FOR [employer] IF HE WILL DISCHARGE PATIENT BUT DID NOT CALLED BACK.
[2018-11-06] MEDS: AZITHROMYCIN 500 MG in IV D5W 250 ML IV SCH (16:32)
[2018-11-06] MEDS: LIDOCAINE 5% (PATCH) 1 EA PATCH TP SCH (16:35)
--- NOTE | 2018-11-06 18:19 | NUR ---
MS RN ON BED, NO DISTRESS NOTED.
--- NOTE | 2018-11-06 19:40 | NUR ---
MS RN RECEIVE PT IN BED A/O X 1 FAROESE SPEAKER STABLE, RESPIRATIONS EVEN AND UNLABORED, SAFETY MEASURES IN PLACE. WILL CONTINUE TO MONITOR.
[2018-11-06 20:00] VITALS: BP 154/81
--- NOTE | 2018-11-07 06:21 | NUR ---
MS RN ASLEEP AND EASILY AWAKEN, STABLE. KEPT CLEAN AND DRY AND COMFORTABLE. NEEDS ATTENDED AND ANTICIPATED. NURSING CARE RENDERED, NO C/O OF PAIN. SAFETY MEASURES AT ALL TIMES. ENDORSE TO THE NEXT SHIFT.
[2018-11-07 06:38] LABS: BASOPHILS % (AUTO) 0.2 % (0.0-2.0); EOSINOPHILS % (AUTO) 1.2 % (0.0-6.0); HEMATOCRIT 36 % (33-45); HEMOGLOBIN 12.1 g/dL (11.5-14.8); LYMPHOCYTES # (AUTO) 2.1 /CMM (0.8-4.8); LYMPHOCYTES % (AUTO) 19.1 % (20.0-44.0); MEAN CORPUSCULAR HGB CONC 33 g/dl (31.0-36.0); MEAN CORPUSCULAR VOLUME 83 fL (82-100); MONOCYTES # (AUTO) 0.8 /CMM (0.1-1.30); NEUTROPHILS # (AUTO) 7.9 /CMM (1.8-8.9); NEUTROPHILS % (AUTO) 72.5 % (43.0-81.0); PLATELET COUNT (AUTO) 259 /CMM (150-450); RED BLOOD CELL COUNT(AUTO) 4.38 MIL/uL (4.0-5.2); WHITE BLOOD COUNT (AUTO) 10.9 K/uL (4.3-11.0)
[2018-11-07] MEDS: HYDROCODONE/APAP 5/325MG 1 EACH TABLET PO PRN (06:49)
[2018-11-07 07:05] LABS: CALCIUM, SERUM 7.5 mg/dL (8.5-10.1); CARBON DIOXIDE 24 mmol/L (21-32); CHLORIDE 99 mmol/L (98-107); CREATININE 0.6 mg/dL (0.6-1.3); GLUCOSE 107 mg/dL (74-106); POTASSIUM 3.3 mmol/L (3.5-5.1); SODIUM SERUM 133 mmol/L (136-145); UREA NITROGEN, BLOOD 6 mg/dL (7-18)
[2018-11-07 08:00] VITALS: BP 126/79
--- NOTE | 2018-11-07 08:03 | NUR ---
MS RN RECEIVED ON BED, SLEEPING.NO DISTRESS NOTED, LUNGS ARE CLEAR,ABDOMEN SOFT POSITIVE BOWEL SOUNDS DENIES PAIN AT THIS TIME,ALL NEEDS ATTENDED.
--- NOTE | 2018-11-07 09:30 | NUR ---
MS [place] BREAKFAST SERVED,DUE MEDS GIVEN,TOLERATED WELL.
--- NOTE | 2018-11-07 10:00 | NUR ---
MS RN WAS SEEN BY [employer] Pantoja/ ORDER TO GO HOME TODAY.
[2018-11-07] MEDS ORDERED: AMOX500T2 PO (11:17)
[2018-11-07] MEDS ORDERED: LIDO30AD10 TP (11:17)
[2018-11-07] MEDS ORDERED: AZIT500T4 PO (11:17)
[2018-11-07] MEDS ORDERED: POTASSIUM CHLORIDE 20 MEQ TAB.PRT.SR PO SCH (11:30)
--- NOTE | 2018-11-07 11:30 | NUR ---
MS JAYDA WHITFIELD REFUSED,WILL MONITOR PATIENT.
[2018-11-07] MEDS: LIDOCAINE 5% (PATCH) 1 EA PATCH TP SCH (13:43)
--- NOTE | 2018-11-07 13:45 | NUR ---
MS BAGGAGE SCREENER INSTRUCTIONS GIVEN TO DAUGHTER, TO HAVE A FOLLOW UP W/ PRIMARY IN ONE WEEK, WENT HOME ACCOMPANIED BY FAMILY,NO DISTRESS NOTED, PRUNE JUICE AND MOM WERE GIVEN PO FOR CONSTIPATION.
== END 2018-11-07 14:00 | disposition home or self-care (01) | DRG 139 ==
LOC: MED 22:27
PROVIDERS: ADMIT Student in an Organized Health Care Education/Training Program; ATTEND Nurse Practitioner Acute Care
DX: J15.9 Unspecified bacterial pneumonia (principal); G93.41 Metabolic encephalopathy; E86.0 Dehydration; E87.1 Hypo-osmolality and hyponatremia; N39.0 Urinary tract infection, site not specified; M81.0 Age-related osteoporosis without current pathological fracture; E78.5 Hyperlipidemia, unspecified; I10 Essential (primary) hypertension; Z98.51 Tubal ligation status; Z98.890 Other specified postprocedural states; Z79.899 Other long term (current) drug therapy; G89.29 Other chronic pain; E86.1 Hypovolemia; E55.9 Vitamin D deficiency, unspecified
CPT/HCPCS: 36415; 71045-TC; 80048-TC; 80061-TC; 81000-TC; 83605-TC; 83735-TC; 84100-TC; 84439-TC; 84443-TC; 85025-TC; 87040-TC; 87081-TC; 87086-TC; 97110-TC; 97116-TC; 97530-TC; G0378; J0456; J0696; J7030; J7060